=== PATIENT | male | born 1955 | race Caucasian/White ===

== ENCOUNTER → 2022-12-11 | Outpatient (CLI) | payer OTHER, MEDICARE | LOC: SLEEPLAB 17:30 | PROVIDERS: ATTEND Family Medicine | DX: G47.33 Obstructive sleep apnea (adult) (pediatric) (principal); G47.31 Primary central sleep apnea; R53.83 Other fatigue; R40.0 Somnolence; R09.89 Other specified symptoms and signs involving the circulatory and respiratory systems; R06.83 Snoring; R35.1 Nocturia; Z68.26 Body mass index [BMI] 26.0-26.9, adult | CPT/HCPCS: 95800 ==

== ENCOUNTER 2023-02-05 19:00 | Outpatient (CLI) | payer OTHER | END 2023-02-05 19:01 | disposition home or self-care (01) | LOC: SLEEPLAB 19:00 | PROVIDERS: ATTEND Family Medicine | DX: G47.33 Obstructive sleep apnea (adult) (pediatric) (principal); R53.83 Other fatigue; R09.89 Other specified symptoms and signs involving the circulatory and respiratory systems; R06.83 Snoring; R35.1 Nocturia | CPT/HCPCS: 95811 ==

== ENCOUNTER 2024-03-21 11:53 | Emergency (ER) | payer MEDICARE, OTHER ==
[2024-03-21] MEDS ORDERED: Rabies Vaccine Human 2.5 UNITS VIAL ONE (12:13)
== END 2024-03-21 12:30 | disposition home or self-care (01) ==
LOC: ERS 11:53
DX: Z23 Encounter for immunization (principal)
CPT/HCPCS: 90471; 90675